=== PATIENT | male | born 1975 | race Caucasian/White ===

== ENCOUNTER 2019-08-21 19:59 | Emergency (ER) | payer OTHER ==
[~2019-08-21] VITALS: Ht 180.3 cm; Wt 90.7 kg
[~2019-08-21 19:59] MED LIST: CEPH500 PO; CLIN300 PO; CRUTCH2 USE; CRUTCH4 USE; HYDACE5 PO; IBUP600 PO; IBUP800 PO; METPRE4DP PO; NAPR500 PO; OXYACE5T PO; Percocet 5-3251 EACH PO; SULF10OPSA OD; SULF10OPSA OU; VALACYCLOVIR1000 MG PO
[2019-08-24] MEDS ORDERED: Voltaren100 GM TOP (09:57)
[2019-08-24] MEDS ORDERED: Cyclobenzaprine5 MG PO (09:57)
[2019-08-24] MEDS ORDERED: Prednisone20 MG PO (09:57)
[2019-08-24] MEDS ORDERED: Norco 5-325 Ta1 EACH PO (10:06)
== END 2019-08-21 23:21 | disposition left against medical advice (07) ==
LOC: ER 19:59
DX: Z53.21 Procedure and treatment not carried out due to patient leaving prior to being seen by health care provider (principal)